=== PATIENT | male | born 1975 | race Caucasian/White ===

== ENCOUNTER 2020-11-24 14:45 | Outpatient (RCR) | payer OTHER | END 2020-12-31 | disposition home or self-care (01) | LOC: WSOT | DX: G56.91 Unspecified mononeuropathy of right upper limb (principal); J45.909 Unspecified asthma, uncomplicated; M47.812 Spondylosis without myelopathy or radiculopathy, cervical region; Y99.0 Civilian activity done for income or pay; Z98.890 Other specified postprocedural states; Z87.891 Personal history of nicotine dependence | CPT/HCPCS: 24774; L1810 ==

== ENCOUNTER 2021-03-05 08:53 | Outpatient (RCR) | payer OTHER | END 2021-03-09 | disposition home or self-care (01) | LOC: WSOH | DX: M50.10 Cervical disc disorder with radiculopathy, unspecified cervical region (principal); J45.909 Unspecified asthma, uncomplicated; Z87.891 Personal history of nicotine dependence; Z98.890 Other specified postprocedural states; Y99.0 Civilian activity done for income or pay ==